=== PATIENT | female | born 1995 | race Caucasian/White ===

== ENCOUNTER 2017-03-24 00:24 | Emergency (ER) | payer BC, OTHER ==
[~2017-03-24] VITALS: Ht 167.6 cm; Wt 85.5 kg
[2017-03-24 00:26] VITALS: TEMP 36.8; Ht 167.6 cm; Wt 85.5 kg
[2017-03-24] MEDS ORDERED: IBUPROFEN 600 MG TAB PO STA (00:44)
[2017-03-24 01:35] VITALS: BP 105/87; PULSE 78; O2SAT 99
--- NOTE | 2017-03-24 03:28 | EMERGENCY ROOM VISIT NOTE ---
ED Visit Note First contact with patient: 00:31 CHIEF COMPLAINT: Foot pain HISTORY OF PRESENT ILLNESS: This 21 patient presents to the emergency department with family complaining of swelling and pain in the left foot at rest and worse with weight bearing. The [place]. The patient rates the pain as throbbing and 4/10. The patient has taken nothing for relief of the pain. The patient is able to walk. No numbness or weakness. No ankle pain. There are no lacerations of the foot. The patient is able to move all of their toes and their ankle without pain. No previous fracture to this foot. REVIEW OF SYSTEMS: GENERAL: A 6 system review of systems was completed with positives and pertinent negatives in the HPI. ALLERGIES: Nuts MEDICATIONS: None PMH: None SOCIAL HISTORY: No drug use PHYSICAL EXAM: Vital Signs: Reviewed Nurse's notes, vital signs stable. GENERAL : Pleasant female, in no acute distress, but appears in pain, well-developed, well-nourished. MUSCULOSKELATAL: There is no visual deformity of the foot. There is no erythema or ecchymosis. There is no warmth. There is tenderness and swelling over the distal mid left foot. There is no tenderness over the lateral or medial malleolus. No tenderness of the tib/fib. The range of motion of the foot is not limited secondary to pain. There is no tenderness over the plantar fascia. The skin is intact and there are no lacerations or puncture wounds. Dorsalis pedis pulse 2+. Capillary refill less than 2 seconds. EMERGENCY DEPARTMENT COURSE: I examined the patient. An X-ray of the left foot was reviewed by myself and attending and reveals possible chip fracture versus calcification. The patient was placed in postop shoe and instructed on the use of crutches. Patient is advised follow-up orthopedics in a few days or here in the ER sooner for severe pain, numbness, tingling, worsening signs or symptoms or as needed. The patient was discharged home in good condition. DIAGNOSIS: #1 left foot sprain TREATMENT: As above Current/Historical Medications No Active Prescriptions or Reported Meds Allergies Coded Allergies: NUTS (Unverified Allergy, Unknown, hives, 03/24/17) Uncoded Allergies: NKDA (Allergy, Mild, NA, 06/18/09) Vital Signs Date Time Temp Pulse Resp B/P (MAP) Pulse Ox O2 Delivery O2 Flow Rate FiO2 03/24/17 01:35 78 16 105/87 99 03/24/17 00:26 36.8 81 16 129/83 98 Room Air Medications Administered Medications (Trade) Dose Ordered Sig/Kelly Route Start Time Stop Time Status Last Admin Dose Admin Ibuprofen (Motrin Tab) 600 mg NOW STAT PO 03/24/17 00:44 03/24/17 00:46 DC 03/24/17 01:01 600 MG Departure Information Impression Primary Impression: Foot pain Dispostion Home / Self-Care Condition GOOD Prescriptions No Active Prescriptions or Reported Meds Referrals Beatrice Arceo (PCP) Suleman Cordon M.D. Forms HOME CARE DOCUMENTATION FORM, Work Instructions, Return To Work: 1 day IMPORTANT VISIT INFORMATION Patient Instructions [facility] Additional Instructions Ibuprofen(Motrin, Advil) may be used for fever or pain. Use 600mg every six hours as needed. Take with food. Avoid using more than 2400mg in a 24 hour period. Do not use 2400mg per day for more than three consecutive days without physician direction. Prolonged inappropriate use can lead to stomach upset or ulcers. This medication can be taken if you need to drive, work, or perform activities which may be dangerous when taking narcotic pain medication. (AND/OR) Acetaminophen(Tylenol) may be used for fever or pain. Use 1000mg every six hours as needed. Avoid using more than 3000mg in a 24 hour period. This medication can be taken if you need to drive, work, or perform activities which may be dangerous when taking narcotic pain medication. Ice compresses for 20 minutes at a time four times daily for 2-3 days. Use the crutches as instructed. Rest and elevate your injury. Wear postop shoe for comfort until pain subsides. Do not have it so tight that you cannot feel your foot. Continue current medications. Return to the ER immediately for any numbness, tingling, severe pain, extreme swelling in the extremity or as needed. Call Orthopedics in 5-7 days if symptoms persist to arrange follow up for your injury. Work Instructions Return To Work: 1 day
--- NOTE | 2017-03-24 07:44 | DIAGNOSTIC IMAGING REPORT ---
LEFT FOOT MIN 3 VIEWS ROUTINE CLINICAL HISTORY: Left foot pain. COMPARISON: None FINDINGS: Tarsometatarsal joints are intact. There is no acute fracture or suspicious lesion within the left foot. There is minimal osteophytosis of the talonavicular articulation. Joint spaces are preserved. There is no erosions. IMPRESSION: No acute fracture or dislocation of the left foot. Electronically signed by: Mayo Vallejo M.D. 03/24/2017 7:43 AM Dictated Date/Time: 03/24/2017 7:42 AM
== END 2017-03-24 01:40 | disposition home or self-care (01) ==
LOC: C.EDB 00:25 → C.EDC 01:40
DX: S93.602A Unspecified sprain of left foot, initial encounter (principal); X58.XXXA Exposure to other specified factors, initial encounter; Y92.830 Public park as the place of occurrence of the external cause

== ENCOUNTER 2017-11-29 13:17 | Emergency (ER) | payer BC, OTHER ==
[~2017-11-29] VITALS: Ht 167.6 cm; Wt 92.2 kg
[2017-11-29 13:38] VITALS: TEMP 37; Ht 167.6 cm; Wt 92.2 kg
[2017-11-29] MEDS ORDERED: XYLOCAINE 1%/SOD BICARB 20 ML VIAL INFIL ONE (14:03)
--- NOTE | 2017-11-29 14:11 | EMERGENCY ROOM VISIT NOTE ---
History Report prepared by Sharonibe: Poly Lawson Under the Supervision of: Dr. Nola Caal M.D. First contact with patient: 13:43 Chief Complaint: VAGINAL BLEEDING Stated Complaint: VAGINAL BLEEDING, SWOLLEN, PAIN History of Present Illness The patient is a 22 year old female who presents to the Emergency Room with complaints of persistent pain and swelling in her labia since last night. She rates her discomfort as an 8/10 in severity. She states there is a "bump" on her labia that started bleeding last night. She admits there is a chance she could be , but she does take daily control pills. Her last menstrual period was approximately 1 month ago and normal. The patient denies any recent urinary symptoms. Source of History: patient Onset: last night Position: other (vagina) Symptom Intensity: 8/10 Timing: other (persistent) Associated Symptoms: No urinary symptoms Review of Systems See HPI for pertinent positives & negatives. A total of 10 systems reviewed and were otherwise negative. Past Medical & Surgical Medical Problems: (1) No significant past medical history Social History Smoking Status: Never Smoker Alcohol Use: none Drug Use: none Marital Status: single Housing Status: lives with family Occupation Status: employed Current/Historical Medications Scheduled Sulfa/Trimethoprim (Bactrim Ds 800MG/160MG), 1 TAB PO BID Scheduled PRN Hydrocodone/Acetaminophen 5MG/325MG ([place] 5MG/325MG), 1 TABLET PO Q6 PRN for Pain Allergies Coded Allergies: NUTS (Unverified Allergy, Unknown, hives, 03/24/17) Uncoded Allergies: NKDA (Allergy, Mild, NA, 06/18/09) Physical Exam Vital Signs Date Time Temp Pulse Resp B/P (MAP) Pulse Ox O2 Delivery O2 Flow Rate FiO2 11/29/17 14:46 81 16 115/85 98 Room Air 11/29/17 13:38 37.0 77 18 139/83 98 Room Air Physical Exam Vital signs reviewed. General: Well-appearing, 22 year old female, in no significant distress. HEENT: No scleral icterus, PERRLA, neck supple. Atraumatic. Abdomen: Soft, nontender, nondistended, positive bowel sounds. Musculoskeletal: Atraumatic, no peripheral edema. Pelvic: Moderate amount of dark red blood in the vaginal vault. At the right side of the vaginal entrance, there is a large 2 cm area of induration, positive fluctuance, tender, with mild amount of vaginal bleeding, no cervical motion tenderness. Neurologic: Patient awake alert and oriented x 3 Skin: Warm, dry, no rash Medical Decision & Procedures Laboratory Results Test 11/29/17 14:30 Laboratory results per my review. Medications Administered Medications (Trade) Dose Ordered Sig/Kelly Route Start Time Stop Time Status Last Admin Dose Admin Trimethoprim/ Sulfamethoxazole (Septra Ds 800/ 160MG Tab) 1 tab NOW STAT PO 11/29/17 14:37 11/29/17 14:40 DC 11/29/17 14:47 1 TAB Acetaminophen/ Hydrocodone Bitart ([place] 5/325 Tab) 1 tab NOW STAT PO 11/29/17 14:37 11/29/17 14:40 DC 11/29/17 14:47 1 TAB Trimethoprim/ Sulfamethoxazole (Sulfameth/ Trimeth Ds 800/ 160MG Home Pack) 1 homepack UD ONCE PO 11/29/17 15:00 11/29/17 15:01 DC 11/29/17 15:03 1 HOMEPACK Acetaminophen/ Hydrocodone Bitart ([place] 5/325mg Home Pack) 1 homepack UD ONCE PO 11/29/17 15:00 11/29/17 15:01 DC 11/29/17 15:03 1 HOMEPACK Procedure Incision & Drainage Indication: Abscess. Location: Right Labia Verbal consent was obtained after the risks and benefits were explained, including but not limited to bleeding, scarring, infection, pain, and bone/joint /nerve damage. At this time, the risks of the procedure are less than the risks of NOT performing the procedure. A time out was taken and the correct patient and site identified. The skin was prepped with betadine and a sterile field set. The wound was anesthetized with 3 cc of 1% lidocaine without epinephrine. The abscess cavity was entered with a number 11 blade and purulent material expressed. Copious irrigation was performed using NSS. Packing placed and a sterile dressing applied. Detailed wound care instructions and signs and symptoms of worsening infection reviewed with the patient. No complications and the patient tolerated the procedure well. ED Course 1349: Past medical records reviewed. The patient was evaluated in room B4B. A complete history and physical examination was performed. 1403: Lidocaine HCl 20 ml INFIL. 1420: I performed an I&D procedure on the patient. See procedure note for complete details. 1437: Fifty Six 5/325 mg 1 tab PO, Septra Ds 800/160 mg 1 tab. 1445: I reevaluated the patient. She is comfortable and feeling well. I discussed her discharge instructions and she verbalized complete understanding and agreement. Medical Decision Differential Diagnoses: STI, abscess, menses and cyst. This patient was evaluated and appeared to be in no significant distress. Physical examination is consistent with a Bartholin's abscess. An I&D was performed, please see my procedure note above. Wound culture was obtained and is pending. Patient was given wound care instructions. She will follow-up with TELECOM SPECIALIST for further management. Patient was placed on Bactrim DS 1 tablet twice daily for 7 days as she is not currently established with TELECOM SPECIALIST and does not have solid follow-up arrangements. Mother states that she will attempt to make an appointment with her TELECOM SPECIALIST for the patient. She will remove the packing in 2 days and use ibuprofen as needed for pain, Fifty Six as needed for more severe pain. She will return to the ER for worsening of symptoms or any medical concerns. Medication Reconcilliation Current Medication List: was personally reviewed by me Blood Pressure Screening Patient's blood pressure: Normal blood pressure Blood pressure disposition: Did not require urgent referral Impression Primary Impression: Bartholin's gland abscess Additional Impression: Onset of menses Scribe Attestation The scribe's documentation has been prepared under my direction and personally reviewed by me in its entirety. I confirm that the note above accurately reflects all work, treatment, procedures, and medical decision making performed by me. Departure Information Dispostion Home / Self-Care Prescriptions Hydrocodone/Acetaminophen 5MG/325MG (Fifty Six 5MG/325MG) Tab 1 TABLET PO Q6 Y for Pain, #10 TAB Prov: Nola Caal M.D. 11/29/17 Sulfa/Trimethoprim (Bactrim Ds 800MG/160MG) Tab 1 TAB PO BID, #14 TAB Prov: Nola Caal M.D. 11/29/17 Referrals Beatrice Arceo PRomel (PCP) Patient Instructions Bartholin Cyst Abscess, My [facility] Additional Instructions Diagnosis: Bartholin cyst abscess Bactrim DS 1 tablet twice daily for 7 days. Please contact TELECOM SPECIALIST as soon as possible for follow-up exam. Leave packing in place for 48 hours. Use a squirt bottle to clean the area after bowel movements. Irrigate the area at least one to 2 times daily. Ibuprofen 600 mg every 6 hours as needed for pain with food. Fifty Six one tablet every 4-6 hours as needed for severe pain. Return to the ER for worsening of symptoms or any medical concerns. Problem Qualifiers
[2017-11-29] MEDS ORDERED: HYDROCODONE/ACETAMIN 5/325MG TAB PO STA (14:37)
[2017-11-29] MEDS ORDERED: SULFAMETHOXAZOLE/TRIMETHOPRIM DS 800/160MG TAB PO STA (14:37)
[2017-11-29] MEDS ORDERED: SULF800T23 PO (14:45)
[2017-11-29] MEDS ORDERED: HYDR-5688 PO (14:45)
[2017-11-29 14:46] VITALS: BP 115/85; PULSE 81; O2SAT 98
[2017-11-29] MEDS ORDERED: SEPTRA DS HOME PACK 1 EA VIAL PO ONE (15:00)
[2017-11-29] MEDS ORDERED: NORCO 5/325MG HOME PACK PO ONE (15:00)
== END 2017-11-29 15:05 | disposition home or self-care (01) ==
LOC: C.EDB 13:18
DX: N75.1 Abscess of Bartholin's gland (principal); N92.6 Irregular menstruation, unspecified; Z79.3 Long term (current) use of hormonal contraceptives; Z91.010 Allergy to peanuts

== ENCOUNTER 2017-12-01 17:20 | Emergency (ER) | payer OTHER ==
[~2017-12-01] VITALS: Ht 167.6 cm; Wt 93.0 kg
[~2017-12-01 17:20] MED LIST: HYDR-5688 PO; SULF800T23 PO
[2017-12-01 17:22] VITALS: BP 115/61; PULSE 67; TEMP 36.4; O2SAT 99; Ht 167.6 cm; Wt 93.0 kg
--- NOTE | 2017-12-01 17:36 | EMERGENCY ROOM VISIT NOTE ---
ED Visit Note First contact with patient: 17:25 CHIEF COMPLAINT: Packing removal HISTORY OF PRESENT ILLNESS: This 22-year-old female patient presents to the emergency department ambulatory for packing removal of a Bartholin's gland abscess. Previous care outlined has been followed without difficulty. Patient reports she does have a mild pain rated 7/10 but things seem to be healing well. She denies any increased swelling or fevers. REVIEW OF SYSTEMS: A 6 system review of systems was completed with positives and pertinent negatives listed in the HPI. ALLERGIES: No known drug allergies MEDICATIONS: No chronic medications PMH: Unchanged from previous visit. PHYSICAL EXAM: Vital Signs reviewed, see Nurse's notes. Patient is afebrile, vital signs stable. GENERAL: This is a 22-year-old female, awake, alert, well appearing, no acute distress SKIN: Packing is in place in the right labia. There is a small amount of continued purulent discharge. The redness has decreased. The wound is healing well. NEURO: No sensory or motor deficits noted. EMERGENCY DEPARTMENT COURSE AND DECISION MAKING: I examined the patient. A small strip of packing was removed from the right labia. The wound is healing well. Instructions of care were reinforced with the patient. Discharge instructions reviewed. Discharged in stable condition. Medication reconciliation: I attest that I have personally reviewed the patient 's current medication list. Blood pressure screening: Patient was found to have normal blood pressure on screening and does not require follow-up. DIAGNOSIS: Packing removal Current/Historical Medications Scheduled Sulfa/Trimethoprim (Bactrim Ds 800MG/160MG), 1 TAB PO BID Scheduled PRN Hydrocodone/Acetaminophen 5MG/325MG ([place] 5MG/325MG), 1 TABLET PO Q6 PRN for Pain Allergies Coded Allergies: NUTS (Unverified Allergy, Unknown, hives, 03/24/17) Uncoded Allergies: NKDA (Allergy, Mild, NA, 06/18/09) Vital Signs Date Time Temp Pulse Resp B/P (MAP) Pulse Ox O2 Delivery O2 Flow Rate FiO2 12/01/17 17:22 36.4 67 18 115/61 99 Departure Information Impression Primary Impression: Encounter for abscess packing removal Dispostion Home / Self-Care Condition GOOD Referrals Beatrice Arceo A. P.A. (PCP) Patient Instructions My [facility] Additional Instructions Follow-up with CASEWORK MANAGER for further evaluation. Continue to follow the instructions given to you on previous visit.
--- NOTE | 2017-12-02 17:38 | Pharmacy Progress Note ---
ED Pharmacist Culture FollowUp Date of Service: Dec 02, 2017. Patient returned for packing removal s/p I&D for Bartholin's abscess. Per the provider who saw her, Lisette Paraad PA-C, the patient was healing nicely and feeling better. She was previously discharged on bactrim. It was discussed that there is no need for further antibiotic treatment at this time.
== END 2017-12-01 17:41 | disposition home or self-care (01) ==
LOC: C.EDB 17:21 → C.EDD 17:41
DX: Z48.00 Encounter for change or removal of nonsurgical wound dressing (principal); Z91.010 Allergy to peanuts

== ENCOUNTER → 2018-04-16 | Outpatient (CLI) | payer OTHER ==
[~2018-04-16] MED LIST changes: +ACET-1256 PO; +IBUP-1050 PO
== END | disposition home or self-care (01) ==
LOC: C.LAB1850 09:25
PROVIDERS: ATTEND Obstetrics & Gynecology
DX: O36.80X0 Pregnancy with inconclusive fetal viability, not applicable or unspecified (principal)

== ENCOUNTER → 2018-04-26 | Outpatient (CLI) | payer OTHER ==
[~2018-04-26] MED LIST changes: -HYDR-5688 PO; -SULF800T23 PO
== END | disposition home or self-care (01) ==
LOC: C.LAB1850 10:30
PROVIDERS: ATTEND Obstetrics & Gynecology
DX: O03.4 Incomplete spontaneous abortion without complication (principal)

== ENCOUNTER 2018-05-08 19:29 | Emergency (ER) | payer OTHER ==
[~2018-05-08] VITALS: Ht 167.6 cm; Wt 96.5 kg
[2018-05-08 19:31] VITALS: TEMP 36.6; Ht 167.6 cm; Wt 96.5 kg
[2018-05-08 20:13] VITALS: BP 119/82; PULSE 93; O2SAT 98
--- NOTE | 2018-05-08 23:23 | EMERGENCY ROOM VISIT NOTE ---
History First contact with patient: 19:34 Chief Complaint: BITE Stated Complaint: BUG BITES,PAINFUL, SWOLLEN ON TOP OF FOOT History of Present Illness The patient is a 22 year old female who presents to the Emergency Room with complaints of painful and swollen bug bites to bilateral lower extremities and left foot. The patient [place] She did notice some bites on her legs and foot that have progressively worsened. She was seen 2 days ago at the [facility] urgent care center and provided prescriptions for Keflex 500 mg twice daily for 10 days, and triamcinolone 0.1% cream. The patient reports that the redness has not improved. She has not noticed any foot swelling, red streaks or fever. She rates her discomfort a 7 out of 10. She has not taken any ibuprofen or Tylenol on a regular basis for pain control. Tetanus immunization is up-to-date. Review of Systems 10 system review was performed and was negative except for pertinent positives and negatives as indicated in history of present illness Past Medical/Surgical History Medical Problems: (1) Bartholin's gland abscess (2) Miscarriage (3) No significant past medical history Family History Patient reports no known family medical history. Social History Smoking Status: Never Smoker Alcohol Use: none Drug Use: none Marital Status: single Housing Status: lives with family Occupation Status: employed Current/Historical Medications Scheduled PRN Acetaminophen (Tylenol), 1,000 MG PO Q6 PRN for Pain or Fever Ibuprofen (Advil), 400-600 MG PO Q6H PRN for Pain or Fever Physical Exam Vital Signs Date Time Temp Pulse Resp B/P (MAP) Pulse Ox O2 Delivery O2 Flow Rate FiO2 05/08/18 20:13 93 18 119/82 98 05/08/18 19:31 36.6 93 18 119/82 98 Room Air Physical Exam CONSTITUTIONAL: Healthy and well nourished. Alert and oriented X 3 with positive affect. HEENT: Normocephalic, atraumatic. Pupils equal, round and reactive. NECK: Full active range of motion without discomfort. MUSCULOSKELETAL: Patient has no worsening pain with range of motion of the ankles. Pedal pulses are intact. INTEGUMENTARY: Examination of the left foot and lower portion of bilateral legs shows erythematous lesions with central clearing. They are mildly tender to palpation. They do not benitez with pressure. No the epithelialization, vesicles or pustules noted. LYMPHATICS: No lower extremity lymphangitic streaking or proximal adenopathy noted. NEUROLOGIC: Bilateral lower extremities are sensory intact. Medical Decision & Procedures ED Course Patient history and physical exam were performed. Nurse's notes were reviewed. Vital signs were reviewed and were normal. I did recommend that the patient increase the frequency of her Keflex to 500 mg 3 times daily. She may continue with the triamcinolone cream. She was encouraged alternate ibuprofen and Tylenol as needed for pain. She was instructed to follow-up with her PCP if the redness is not improving within the next few days. She was instructed to return to the emergency department for worsening redness, swelling, pain, red streaks or fever. The patient was happy with plan of care, voiced understanding of all discharge instructions, and rated her discomfort a 5 out of 10 at the time of discharge. Medical Decision Medication Reconcilliation Current Medication List: was personally reviewed by me Blood Pressure Screening Patient's blood pressure: Normal blood pressure Impression Primary Impression: Insect bite of foot with local reaction Departure Information Dispostion Home / Self-Care Condition GOOD Forms HOME CARE DOCUMENTATION FORM, IMPORTANT VISIT INFORMATION Patient Instructions My [facility] Additional Instructions Change your dosing of your antibiotic to Keflex 500 mg 3 times daily. Avoid any irritation of the wounds. Return to the emergency department for any breakdown of the skin, or increasing redness, red streaks or developing fever. Problem Qualifiers Primary Impression: Insect bite of foot with local reaction Encounter type: initial encounter Laterality: left Qualified Codes: S90.862A - Insect bite (nonvenomous), left foot, initial encounter; W57.XXXA - Bitten or stung by nonvenomous insect and other nonvenomous arthropods, initial encounter
== END 2018-05-08 20:14 | disposition home or self-care (01) ==
LOC: C.EDB 19:30 → C.EDD 20:14
DX: S90.862A Insect bite (nonvenomous), left foot, initial encounter (principal); S80.862A Insect bite (nonvenomous), left lower leg, initial encounter; S80.861A Insect bite (nonvenomous), right lower leg, initial encounter; W57.XXXA Bitten or stung by nonvenomous insect and other nonvenomous arthropods, initial encounter; Y92.832 Beach as the place of occurrence of the external cause

== ENCOUNTER 2018-05-17 02:10 | Emergency (ER) | payer OTHER ==
[~2018-05-17] VITALS: Ht 167.6 cm; Wt 97.7 kg
[2018-05-17 02:14] VITALS: TEMP 36.8; Ht 167.6 cm; Wt 97.7 kg
--- NOTE | 2018-05-17 02:45 | EMERGENCY ROOM VISIT NOTE ---
History Report prepared by Augustin: Sher Wilkins Under the Supervision of: Dr. Andreia Christianson D.O. First contact with patient: 02:21 Chief Complaint: BITE Stated Complaint: BUG BITES History of Present Illness The patient is a 22 year old female who presents to the Emergency Room with complaints of constant blistering bug bites beginning yesterday. The patient states that she went to the beach earlier this month and then developed bug bites on her arms, back, and feet. She notes that her bug bites first appeared on 05/04/2018. She reports that she went to [facility] on 05/06/2018, and was told that her bug bites were likely caused by sand fleas. The patient states that she received triamcinolone cream and Keflex from [facility] She notes that she then came into the emergency department on 05/08/2018 for her symptoms. She reports that the bug bites on her right arm started to blister yesterday, and she states that one of the blisters popped an hour ago, prompting her visit to the emergency department. She notes that the blisters on her right arm were itchy earlier today. She denies any bug bites/blisters on her chest/abdomen, fever, and chills. She reports that her other bug bites have resolved. Source of History: patient Onset: yesterday Position: other (right arm) Quality: other (blistering bug bites, itchy) Timing: constant Associated Symptoms: No fevers, No chills Note: The patient states that one of her blisters popped. She notes that her blisters are itchy. She denies any bug bites and blisters on her chest and abdomen. Review of Systems See HPI for pertinent positives & negatives. A total of 10 systems reviewed and were otherwise negative. Past Medical & Surgical Medical Problems: (1) Bartholin's gland abscess (2) Miscarriage (3) No significant past medical history Family History Cancer Diabetes mellitus Heart disease Seizures Social History Smoking Status: Never Smoker Alcohol Use: none Drug Use: none Marital Status: in relationship Housing Status: lives with family Occupation Status: employed Current/Historical Medications Scheduled PRN Acetaminophen (Tylenol), 1,000 MG PO Q6 PRN for Pain or Fever Ibuprofen (Advil), 400-600 MG PO Q6H PRN for Pain or Fever Allergies Coded Allergies: NUTS (Unverified Allergy, Unknown, hives, 04/19/18) Uncoded Allergies: NKDA (Allergy, Mild, NA, 06/18/09) Physical Exam Vital Signs Date Time Temp Pulse Resp B/P (MAP) Pulse Ox O2 Delivery O2 Flow Rate FiO2 05/17/18 02:52 57 18 117/83 100 05/17/18 02:14 36.8 57 18 117/83 100 Room Air Physical Exam HEENT: Head - normocephalic and atraumatic Pupils are equal, round, and reactive to light. Extraocular eye muscles are intact, and sclera are anicteric. Nose - moist nasal mucosa without discharge. Mouth - moist buccal mucosa. Oropharynx is nonerythematous and there is no tonsillar exudate or edema noted. Neck: Supple; no JVD, nuchal rigidity, cervical lymphadenopathy. Heart: Regular rate and rhythm. There is a normal S1 and S2 with no murmurs, clicks, or gallops appreciated. Lungs: Clear to auscultation bilaterally with no wheezes, rales, or rhonchi. Abdomen: Soft, completely nontender, nondistended, with good bowel sounds. There are no palpable pulsatile masses or hepatosplenomegaly. There is no guarding, rigidity, or rebound noted. Extremities: No evidence of cyanosis, clubbing, or edema. There are easily palpable peripheral pulses. Skin: warm and dry with good turgor. 3 small blisters on lateral biceps region of right arm, some mild surrounding erythema. There is no edema or lymphangitic spread. There are no findings to suggest cellulitis. Medical Decision & Procedures ED Course 0222: Past medical records reviewed. The patient was evaluated in room B2. A complete history and physical exam was performed. 0235: I broke the blisters on the patient's right arm. I then cleansed the wound and dressed the area with bacitracin and a sterile dressing. 0255: Upon reevaluation, the patient is stable. I discussed findings and results with her. She verbalized agreement of the treatment plan. The patient was discharged home. Medical Decision The patient is a 22 year old female who presents to the Emergency Room with complaints of an episode of a popped blister occurring an hour ago. Differential diagnoses include: allergic reaction to insect bites, cellulitis, and infected insect bites. The patient has just finished a 10 day course of Keflex. The majority of the insect bites have resolved and healed. She had 3 blisters develop on the right lateral humerus. There was some surrounding erythema which appeared allergic in nature as opposed to cellulitis or lymphangitis. The blisters were broken and the wound was cleansed. It was dressed with antibiotic ointment and a sterile dressing. I have asked the patient to continue cleansing the wounds and covering an antibiotic ointment twice a day for the next couple of days. If she develops any increasing or expanding erythema or signs of cellulitis, she should return to the emergency department. Otherwise, she can follow-up with her PCP. Medication Reconcilliation Current Medication List: was personally reviewed by me Blood Pressure Screening Patient's blood pressure: Normal blood pressure Blood pressure disposition: Did not require urgent referral Impression Primary Impression: Allergic to insect bites Scribe Attestation The scribe's documentation has been prepared under my direction and personally reviewed by me in its entirety. I confirm that the note above accurately reflects all work, treatment, procedures, and medical decision making performed by me. Departure Information Dispostion Home / Self-Care Referrals No Doctor, Assigned (PCP) Forms HOME CARE DOCUMENTATION FORM, IMPORTANT VISIT INFORMATION Patient Instructions My [facility] Additional Instructions Rest with the right arm elevated. Keep blisters clean with soap and water twice a day then cover with antibiotic ointment and a sterile dressing Take benadryl - 50mg every 6 hours for further reaction. Watch for signs of infection - redness spreading up the arm, fevers, vomiting, weakness - Return to the ER Follow up with PCP if not improving
[2018-05-17 02:52] VITALS: BP 117/83; PULSE 57; O2SAT 100
== END 2018-05-17 02:53 | disposition home or self-care (01) ==
LOC: C.EDB 02:11
DX: T78.49XA Other allergy, initial encounter (principal); S40.821A Blister (nonthermal) of right upper arm, initial encounter; W57.XXXA Bitten or stung by nonvenomous insect and other nonvenomous arthropods, initial encounter; Z91.018 Allergy to other foods